=== PATIENT | female | born 1975 | race Caucasian/White ===

== ENCOUNTER 2018-04-26 23:34 | Emergency (ER) | payer SELFPAY ==
[2018-04-26] MEDS: BUPIVACAINE HCL/PF 5 MG/ML 10ML VIAL IJ ONE (23:50)
[2018-04-27] MEDS: BUPIVACAINE HCL/PF 5 MG/ML 10ML VIAL IJ ONE (00:20)
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
[2018-04-27 00:25] VITALS: BP 121/54
[2018-04-27] MEDS: DIPH,PERTUSS(ACELL),TET VAC/PF 0.5 ML DISP.SYRIN IM ONE (00:43)
[2018-04-27] MEDS: BUPIVACAINE HCL/PF 5 MG/ML 10ML VIAL IV ONE ×2 (02:49→02:50)
== END 2018-04-27 00:46 | disposition home or self-care (01) ==
LOC: ED 23:34
DX: S91.312A Laceration without foreign body, left foot, initial encounter (principal); S91.012A Laceration without foreign body, left ankle, initial encounter; W26.8XXA Contact with other sharp object(s), not elsewhere classified, initial encounter; Y92.9 Unspecified place or not applicable; Y93.9 Activity, unspecified; Y99.9 Unspecified external cause status
CPT/HCPCS: 90715; J3490; J7030; 12004; 90471; 96372